=== PATIENT | female | born 1960 | race Caucasian/White ===

== ENCOUNTER 2017-06-11 03:37 | Emergency (ER) | payer MEDICARE, MEDICAID ==
[~2017-06-11] VITALS: Ht 170.2 cm; Wt 65.8 kg
[~2017-06-11 03:37] MED LIST: ALEVE220 M1 PO; AMOXICILLIN500 MG PO; ATIVAN1 MG PO; B COMPLEX1 EACH PO; BAYER CHEWABLE81 MG PO; CATAPRES0.1 MG PO; CEPHALEXIN500 MG PO; IRON18 MG PO; LISINOPRIL10 MG PO; LITHIUM CARBON450 MG PO; MIRALAX17 GM PO; MIRTAZAPINE7.5 MG PO; NAPROXEN500 MG PO; NORCO 5-325 TA1 EACH PO; NORCO 7.5-3251 EACH PO; OMEPRAZOLE20 MG PO; PERCOCET 10-321 EACH PO; THIORIDAZINE HC25 MG PO; TRAMADOL HCL50 MG PO; VITAMIN D250000 UNIT PO; VITAMIN E400 UNI2 PO; WELLBUTRIN XL150 MG PO; WELLBUTRIN XL300 MG PO; ZITHROMAX250 MG PO; ZOFRAN ODT4 MG PO
[2017-06-11] MEDS ORDERED: BELSOMRA10 MG PO (03:47)
== END 2017-06-11 04:59 | disposition home or self-care (01) ==
LOC: ED 03:37
DX: J02.8 Acute pharyngitis due to other specified organisms (principal); B97.89 Other viral agents as the cause of diseases classified elsewhere; I10 Essential (primary) hypertension; Z86.73 Personal history of transient ischemic attack (TIA), and cerebral infarction without residual deficits; Z88.7 Allergy status to serum and vaccine; Z88.8 Allergy status to other drugs, medicaments and biological substances; F31.9 Bipolar disorder, unspecified; Z98.890 Other specified postprocedural states
CPT/HCPCS: 87081; 87880; 99283

== ENCOUNTER 2020-06-04 21:07 | Emergency (ER) | payer MEDICARE, MEDICAID ==
[~2020-06-04] VITALS: Ht 167.6 cm; Wt 65.8 kg
[~2020-06-04 21:07] MED LIST changes: +BELSOMRA10 MG PO
--- OUTSIDE RECORDS SUMMARY | 2020-06-04 21:10 | XMS ---
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 Guidelines Source: [employer] [facility] [place] Guidelines Date: 11/18/2019 Care Coordination: Member is currently enrolled in Mental Health Services through [employer]. If services are needed through [employer] please call: Royal [phone] Dylan/[facility] [place]; [phone] Crisis [phone] E.D. VISIT COUNT (12 MO.) 1 [facility] TOTAL 1 NOTE: Visits indicate total known visits. ED/UCC VISIT TRACKING (12 MO.) 06/04/2020 21:08 [facility] No[facility] [place] TYPE: Emergency COMPLAINT: - TOOTH PAIN INPATIENT VISIT TRACKING (12 MO.) No inpatient visits to display in this time frame [id number]
[2020-06-04] MEDS ORDERED: LORAZEPAM1 MG PO (21:20)
[2020-06-04] MEDS ORDERED: ibuprofen PO (22:29)
[2020-06-04] MEDS ORDERED: AMOXICILLIN500 MG PO (22:29)
== END 2020-06-04 22:42 | disposition home or self-care (01) ==
LOC: ED 21:07
DX: K08.89 Other specified disorders of teeth and supporting structures (principal); I10 Essential (primary) hypertension; Z86.73 Personal history of transient ischemic attack (TIA), and cerebral infarction without residual deficits; F31.9 Bipolar disorder, unspecified; F32.9 Major depressive disorder, single episode, unspecified; Z87.891 Personal history of nicotine dependence; Z88.8 Allergy status to other drugs, medicaments and biological substances; Z88.7 Allergy status to serum and vaccine; Z79.899 Other long term (current) drug therapy
CPT/HCPCS: 99283

== ENCOUNTER 2020-06-06 05:10 | Emergency (ER) | payer MEDICARE, MEDICAID ==
[~2020-06-06] VITALS: Ht 170.2 cm; Wt 66.7 kg
[~2020-06-06 05:10] MED LIST changes: +LORAZEPAM1 MG PO; +ibuprofen PO
--- OUTSIDE RECORDS SUMMARY | 2020-06-06 05:12 | XMS ---
PreManage Notification: LYNN LOGAN Security Software Solutions Architect Events No recent Security Events currently on file CRITERIA MET - [facility] - Has Care Guidelines - PDMP - [facility] - 2 Visits in 30 Days CARE PROVIDERS There are no care providers on record at this time. Guidelines Source: [employer] [facility] Guidelines Date: 11/18/2019 Care Coordination: Member is currently enrolled in Mental Health Services through [employer]. If services are needed through [employer] please call: Royal [phone] Dylan/[facility]; [phone] Crisis [phone] E.D. VISIT COUNT (12 MO.) 2 [facility]. TOTAL 2 NOTE: Visits indicate total known visits. ED/UCC VISIT TRACKING (12 MO.) 06/06/2020 05:10 [facility] No[facility] [place] TYPE: Emergency COMPLAINT: - WEAKNESS 06/04/2020 21:08 [facility] No[facility] [place] TYPE: Emergency COMPLAINT: - TOOTH PAIN INPATIENT VISIT TRACKING (12 MO.) No inpatient visits to display in this time frame [email or web address]
== END 2020-06-06 09:04 | disposition home or self-care (01) ==
LOC: ED 05:10
DX: R53.1 Weakness (principal); I10 Essential (primary) hypertension; Z86.73 Personal history of transient ischemic attack (TIA), and cerebral infarction without residual deficits; F31.9 Bipolar disorder, unspecified; Z87.891 Personal history of nicotine dependence; Z88.8 Allergy status to other drugs, medicaments and biological substances; Z88.7 Allergy status to serum and vaccine; Z79.899 Other long term (current) drug therapy
CPT/HCPCS: 71045; 80053; 80178; 84484; 85025; 99285-25

== ENCOUNTER 2020-06-06 17:12 | Emergency (ER) | payer MEDICARE, MEDICAID ==
[~2020-06-06] VITALS: Ht 170.2 cm; Wt 66.7 kg
--- OUTSIDE RECORDS SUMMARY | 2020-06-06 17:16 | XMS ---
PreManage Notification: LYNN LOGAN Security [employer] Professional Events No recent Security Events currently on file CRITERIA MET - [facility] - Has Care Guidelines - PDMP - [facility] - 2 Visits in 30 Days CARE PROVIDERS There are no care providers on record at this time. Guidelines Source: [employer] [facility] [place] Guidelines Date: 11/18/2019 Care Coordination: Member is currently enrolled in Mental Health Services through [employer]. If services are needed through [employer] please call: Royal [phone] Dylan/[facility]; [phone] Crisis [phone] E.D. VISIT COUNT (12 MO.) 3 [facility]. TOTAL 3 NOTE: Visits indicate total known visits. ED/UCC VISIT TRACKING (12 MO.) 06/06/2020 17:13 [facility] No[facility] [place] TYPE: Emergency COMPLAINT: - SUICIDAL, MANIC BEHAVIOR 06/06/2020 05:10 [facility] No[facility] [place] TYPE: Emergency COMPLAINT: - WEAKNESS 06/04/2020 21:08 [facility] No[facility] [place] TYPE: Emergency COMPLAINT: - TOOTH PAIN INPATIENT VISIT TRACKING (12 MO.) No inpatient visits to display in this time frame [email or web address]
== END 2020-06-06 19:58 | disposition home or self-care (01) ==
LOC: ED 17:12
DX: F31.9 Bipolar disorder, unspecified (principal); I10 Essential (primary) hypertension; Z86.73 Personal history of transient ischemic attack (TIA), and cerebral infarction without residual deficits; F41.9 Anxiety disorder, unspecified; Z87.891 Personal history of nicotine dependence; Z88.8 Allergy status to other drugs, medicaments and biological substances; Z88.7 Allergy status to serum and vaccine; Z79.899 Other long term (current) drug therapy
CPT/HCPCS: 80053; 80176; 81001; 84443; 85025; 99284; G0480